=== PATIENT | male | born 1965 | race Caucasian/White ===

== ENCOUNTER 2016-04-20 07:53 | Emergency (ER) | payer OTHER | END 2016-04-20 08:31 | disposition home or self-care (01) | LOC: ER 07:53 | DX: H57.12 Ocular pain, left eye (principal); I10 Essential (primary) hypertension; G43.909 Migraine, unspecified, not intractable, without status migrainosus; F17.210 Nicotine dependence, cigarettes, uncomplicated; Z90.89 Acquired absence of other organs; Z79.899 Other long term (current) drug therapy; Z88.5 Allergy status to narcotic agent ==